=== PATIENT | female | born 1945 | race Caucasian/White ===

== ENCOUNTER → 2017-12-05 | Outpatient (CLI) | payer OTHER ==
[~2017-12-05] MED LIST: ALBU1AER9; ENAL10TA PO; HYDR25TA4 PO; HYDR5TAB27 PO; IBUP200C80; LEVO88TA PO; MISCTAB29; MONT1TAB3 PO; PANT40TA PO; SENNTAB23; TAMS0.4C59 PO; TRAM-10 PO
[2017-12-05 13:34] LABS: BLOOD UREA NITROGEN 12 mg/dl (7-18); CREATININE 0.91 mg/dl (0.60-1.20); GLUCOSE 105 mg/dl (70-99)
[2017-12-05 13:35] LABS: ALBUMIN 3.5 gm/dl (3.4-5.0); ALKALINE PHOSPHATASE 72 U/L (45-117); ALT/SGPT 23 U/L (12-78); AST/SGOT 19 U/L (15-37); CALCIUM 8.9 mg/dl (8.5-10.1); CARBON DIOXIDE 29 mmol/L (21-32); CHOLESTEROL 190 mg/dl (0-200); LDL CHOLESTEROL CALCULATED 126 mg/dl; POTASSIUM 3.7 mmol/L (3.5-5.1); SODIUM 138 mmol/L (136-145)
== END | disposition home or self-care (01) ==
LOC: C.LABMFLN 07:36
PROVIDERS: ATTEND Family Medicine
DX: I10 Essential (primary) hypertension (principal); E03.9 Hypothyroidism, unspecified